=== PATIENT | female | born 2000 | race Two or more races ===

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

== ENCOUNTER 2019-06-23 11:42 | Emergency (ER) | payer MEDICAID ==
[~2019-06-23] VITALS: Ht 174 cm; Wt 64.9 kg
[~2019-06-23 11:42] MED LIST changes: +ALBUTEROL SULF8.5 GM INH; +MUPIROCIN22 GM TOPIC; +TYLENOL EXTRA500 MG ORAL; +ZYRTEC-D TABLE1 EACH ORAL
[2019-06-23 11:50] VITALS: BP 129/101
--- NOTE | 2019-06-23 11:50 | NUR ---
ED Nurse Note: Pt brought in by boyfriend from home d/t lower abdominal pain that radiates to right flank and right back. Per pt, she has been having this pain for 2 months and is being treated for UTI by primary doctor. Unknown antibiotic. Pt reports vaginal bleeding since this morning. Respirations even and unlabored on room air. Vitals stable as documented. Pt placed on monitored bed. A+Ox4
--- NOTE | 2019-06-23 12:04 | NUR ---
ED Nurse Note: urine and blood sent to lab
--- NOTE | 2019-06-23 12:06 | Emergency Room Report ---
History of Present Illness General Chief Complaint: Vaginal Source: Patient, Medical Record Present Illness HPI Disclaimer: Please note that this report is being documented using [employer] technology. This can lead to erroneous entry secondary to incorrect interpretation by the dictating instrument. HPI: 18-year-old female presents for evaluation of vaginal bleeding and pelvic pain. Symptoms present intermittently over the past 2 months. She notes increasing heavy flows and intermittent vaginal bleeding between periods. She was treated for urinary tract infection currently on Macrobid by her PMD. Reports some vaginal discharge. Was scheduled for an outpatient ultrasound. She states the pain in the right lower quadrant became worse last night does not radiate. She is status post appendectomy 2013. LMP 2 weeks ago. Reports chills and right-sided flank pain. Denies hematuria or dysuria. Denies fevers , chest pain, shortness of breath, cough, nausea, vomiting. PMH: Denies PSH: Laparoscopic appendectomy, elective Allergies: None Allergies: Coded Allergies: No Known Allergies (Unverified , 09/01/18) COVID-19 Screening Contact w/high risk pt: No Recent Travel to affected area: No Experienced COVID-19 symptoms?: No Patient History Last Menstrual Period: 06/04/2019 Now: No Nursing Documentation-PMH Past Medical History: No History, Except For Review of Systems All Other Systems: negative except mentioned in HPI Physical Exam Vital Signs Date Time Temp Pulse Resp B/P (MAP) Pulse Ox O2 Delivery O2 Flow Rate FiO2 06/23/19 11:43 98.4 89 18 129/101 (110) 100 Room Air General: Awake and alert, no acute distress HEENT: NC/AT. EOMI. Cardiovascular: RRR. S1 and S2 normal. No murmur appreciated Resp: Normal work of breathing. No cough, wheezing or crackles appreciated Abdomen: Abdomen is soft, nondistended. Tender palpation of the suprapubic region and right lower quadrant. No rebound. No masses. Some right-sided flank tenderness. : Bright red blood in vaginal vault coming from cervix. No other discharge. Moderate cervical motion tenderness. Skin: Intact. No abrasions, laceration or rash over the exposed skin MSK: Normal tone and bulk. Moving all extremities. No obvious deformity. Neuro: Awake and alert. Mentating appropriately. Medical Decision Making ER Course 18-year-old female presents for pelvic pain and vaginal bleeding. Differential includes was not limited to urinary tract infection, pyelonephritis, tubo- ovarian abscess, ovarian cyst, endometriosis, endometritis, abnormal uterine bleeding, ectopic to name a few. Will obtain labs including type and screen and transvaginal ultrasound. Laboratory Tests Test 06/23/19 11:45 06/23/19 12:00 White Blood Count 6.7 K/UL (4.8-10.8) Red Blood Count 5.09 M/UL (4.20-5.40) Hemoglobin 15.1 G/DL (12.0-16.0) Hematocrit 45.2 % (37.0-47.0) Mean Corpuscular Volume 89 FL (80-99) Mean Corpuscular Hemoglobin 29.7 PG (27.0-31.0) Mean Corpuscular Hemoglobin Concent 33.5 G/DL (32.0-36.0) Red Cell Distribution Width 12.8 % (11.6-14.8) Platelet Count 275 K/UL (150-450) Mean Platelet Volume 7.1 FL (6.5-10.1) Neutrophils (%) (Auto) 66.0 % (45.0-75.0) Lymphocytes (%) (Auto) 24.4 % (20.0-45.0) Monocytes (%) (Auto) 6.5 % (1.0-10.0) Eosinophils (%) (Auto) 1.9 % (0.0-3.0) Basophils (%) (Auto) 1.2 % (0.0-2.0) Sodium Level 143 MMOL/L (136-145) Potassium Level 3.8 MMOL/L (3.5-5.1) Chloride Level 107 MMOL/L (98-107) Carbon Dioxide Level 23 MMOL/L (21-32) Anion Gap 13 mmol/L (5-15) Blood Urea Nitrogen 13 mg/dL (7-18) Creatinine 0.8 MG/DL (0.55-1.30) Estimated Glomerular Filtration Rate > 60 mL/min (>60) Glucose Level 92 MG/DL (74-106) Calcium Level 9.2 MG/DL (8.5-10.1) Urine Color Pale yellow Urine Appearance Clear Urine pH 6.5 (4.5-8.0) Urine Specific [place] 1.010 (1.005-1.035) Urine Protein Negative (NEGATIVE) Urine Glucose (UA) Negative (NEGATIVE) Urine Ketones Negative (NEGATIVE) Urine Blood 5+ (NEGATIVE) H Urine Nitrite Negative (NEGATIVE) Urine Bilirubin Negative (NEGATIVE) Urine Urobilinogen Normal MG/DL (0.0-1.0) Urine Leukocyte Esterase 1+ (NEGATIVE) H Urine RBC 0-2 /HPF (0 - 2) Urine WBC 0-2 /HPF (0 - 2) Urine Squamous Epithelial Cells None /LPF (NONE/OCC) Urine Bacteria Occasional /HPF (NONE) Urine HCG, Qualitative Negative (NEGATIVE) CT/MRI/US Diagnostic Results CT/MRI/US Diagnostic Results : Impression Final Report EXAM: US Pelvis Complete, Transabdominal and transvaginal CLINICAL HISTORY: ABD PAIN TECHNIQUE: Real-time transabdominal and transvaginal pelvic ultrasound (complete) with image documentation. Transvaginal images were obtained to better evaluate the ovaries. COMPARISON: No relevant prior studies available. FINDINGS: Uterus/cervix: Uterus measures 7.4 x 5.3 x 4.1 cm. Endometrial stripe thickness of 9 mm. No myometrial mass. Right ovary: Not seen by transabdominal ultrasound due to overlying bowel gas, but identified with transvaginal ultrasound. Right ovary measures 3.1 x 2.7 x 1.6 cm. Normal Doppler blood flow. Left ovary: Not seen by transabdominal ultrasound due to overlying bowel gas, but identified with transvaginal ultrasound. Left ovary measures 3.3 x 2.9 x 2.0 cm. Normal Doppler blood flow. Free fluid: No free fluid seen. Bladder: Unremarkable as visualized. Wall is normal thickness for degree of distention. IMPRESSION: No acute findings. Radiologist: Jerry Le MD Electronically Signed: 06/23/19 12:56 Study ready at 12:50 and initial results transmitted at 12:56 Reevaluation Time: 13:48 Last Vital Signs Date Time Temp Pulse Resp B/P (MAP) Pulse Ox O2 Delivery O2 Flow Rate FiO2 06/23/19 11:43 98.4 89 18 129/101 (110) 100 Room Air Reevaluation Impression No evidence of tubo-ovarian abscess, ectopic or other significant pathology on ultrasound. Labs are within normal limits. No clear urinary tract infection. The patient may have a pelvic inflammatory disease given her recent vaginal discharge. Will treat empirically with intramuscular ceftriaxone and 2 weeks of doxycycline. Pain is improving. She can follow-up with her PROJECT GEOLOGIST. Discussed reasons to return to the emergency department. She understands and agrees with treatment plan. Disposition: HOME, SELF-CARE Condition: Stable Scripts Doxycycline Monohydrate* (DOXYCYCLINE MONOHYDRATE*) 100 Mg Capsule 100 MG ORAL Q12H for 14 Days, #28 CAP 0 Refills Prov: Eddy Winn MD 06/23/19 Eddy Winn MD Jun 23, 2019 12:06
[2019-06-23 12:21] LABS: APPEARANCE,URINE CLEAR; BILIRUBIN, URINE NEGATIVE (NEGATIVE); COLOR,URINE PALE YELLOW; GLUCOSE, URINE (UA) NEGATIVE (NEGATIVE); KETONES,URINE NEGATIVE (NEGATIVE); LEUKOCYTE ESTERASE ,URINE 1+ (NEGATIVE); NITRITE,URINE NEGATIVE (NEGATIVE); PH,URINE 6.5 (4.5-8.0); PROTEIN,URINE NEGATIVE (NEGATIVE); UROBILINOGEN,URINE NORMAL MG/DL (0.0-1.0)
[2019-06-23 12:25] LABS: ANION GAP 13 mmol/L (5-15); BLOOD UREA NITROGEN 13 mg/dL (7-18); CALCIUM 9.2 MG/DL (8.5-10.1); CARBON DIOXIDE 23 MMOL/L (21-32); CHLORIDE 107 MMOL/L (98-107); CREATININE 0.8 MG/DL (0.55-1.30); POTASSIUM 3.8 MMOL/L (3.5-5.1); SODIUM 143 MMOL/L (136-145)
[2019-06-23 12:42] LABS: BASOPHILS % (AUTO) 1.2 % (0.0-2.0); EOSINOPHILS % (AUTO) 1.9 % (0.0-3.0); HEMATOCRIT 45.2 % (37.0-47.0); HEMOGLOBIN 15.1 G/DL (12.0-16.0); LYMPHOCYTES % (AUTO) 24.4 % (20.0-45.0); MEAN CORPUSCULAR VOLUME 89 FL (80-99); MONOCYTES % (AUTO) 6.5 % (1.0-10.0); PLATELET COUNT 275 K/UL (150-450); RED BLOOD COUNT 5.09 M/UL (4.20-5.40); RED CELL DISTRIBUTION WIDTH 12.8 % (11.6-14.8); WHITE BLOOD COUNT 6.7 K/UL (4.8-10.8)
--- NOTE | 2019-06-23 12:57 | Diagnostic Imaging Report ---
EXAM: US Pelvis Complete, Transabdominal and transvaginal CLINICAL HISTORY: ABD PAIN TECHNIQUE: Real-time transabdominal and transvaginal pelvic ultrasound (complete) with image documentation. Transvaginal images were obtained to better evaluate the ovaries. COMPARISON: No relevant prior studies available. FINDINGS: Uterus/cervix: Uterus measures 7.4 x 5.3 x 4.1 cm. Endometrial stripe thickness of 9 mm. No myometrial mass. Right ovary: Not seen by transabdominal ultrasound due to overlying bowel gas, but identified with transvaginal ultrasound. Right ovary measures 3.1 x 2.7 x 1.6 cm. Normal Doppler blood flow. Left ovary: Not seen by transabdominal ultrasound due to overlying bowel gas, but identified with transvaginal ultrasound. Left ovary measures 3.3 x 2.9 x 2.0 cm. Normal Doppler blood flow. Free fluid: No free fluid seen. Bladder: Unremarkable as visualized. Wall is normal thickness for degree of distention. IMPRESSION: No acute findings.
[2019-06-23] MEDS ORDERED: DOXYCYCLINE MO100 MG ORAL (13:40)
[2019-06-23] MEDS ORDERED: Doxycycline Monohydrate 100mg ORAL ONE (13:45)
[2019-06-23] MEDS ORDERED: Lidocaine 1% MPF 10mg/ml 5ml INJ ONE (13:45)
[2019-06-23 14:00] VITALS: BP 121/98
--- NOTE | 2019-06-23 14:37 | Diagnostic Imaging Report ---
EXAM: US Pelvis, Transvaginal CLINICAL HISTORY: ABD PAIN TECHNIQUE: Real-time transvaginal pelvic ultrasound (complete) with image documentation. Transvaginal imaging was used for better evaluation of the endometrium and adnexa. COMPARISON: Transabdominal pelvic ultrasound obtained the same date. FINDINGS: Uterus/cervix: Uterus measures 7.4 x 5.3 x 4.1 cm. Endometrial stripe thickness of 9 mm. No myometrial mass. Right ovary: Right ovary measures 3.0 x 2.7 x 1.6 cm. Normal Doppler blood flow. Left ovary: Left ovary measures 3.3 x 3.0 x 2.0 cm. Normal Doppler blood flow. Free fluid: No free fluid. Bladder: Visualized portions appear unremarkable.. IMPRESSION: No acute findings.
== END 2019-06-23 14:00 | disposition home or self-care (01) ==
LOC: EMR 12:00
DX: R10.2 Pelvic and perineal pain (principal); N93.9 Abnormal uterine and vaginal bleeding, unspecified; Z90.89 Acquired absence of other organs
CPT/HCPCS: 36415; 76830; 76856; 80048; 81003; 81025; 85025; 86850; 86900; 86901; 96372; J0696; Z7502; 99284

== ENCOUNTER 2019-06-27 22:21 | Emergency (ER) | payer MEDICAID ==
[~2019-06-27] VITALS: Ht 172.7 cm; Wt 62.6 kg
[~2019-06-27 22:21] MED LIST changes: +DOXYCYCLINE MO100 MG ORAL
--- NOTE | 2019-06-27 22:39 | Emergency Room Report ---
History of Present Illness General Chief Complaint: Abdominal Pain Source: Patient Present Illness HPI Is a 18-year-old female with no past medical history. She woke up with chief complaint of back pain. Also with abdominal pain. Onset about 30 minutes ago. She felt short of breath and also complaining of numbness to her fingers. Pain is 10 out of 10. Never had this problem before. She was seen here 3 days ago for vaginal bleeding. Labs was unremarkable. Ultrasound was negative. She was treated with doxycycline for possible PID. Patient said bleeding stopped. Denies any fever chills but denies any nausea or vomiting. Nothing made it better. Any movement or palpation made it worse. Allergies: Coded Allergies: No Known Allergies (Unverified , 09/01/18) COVID-19 Screening Contact w/high risk pt: No Recent Travel to affected area: No Experienced COVID-19 symptoms?: No Patient History Past Medical History: see triage record, old chart reviewed Past Surgical History: none Pertinent Family History: none Social History: Denies: smoking Last Menstrual Period: 05/25/19 Now: No Immunizations: other Reviewed Nursing Documentation: PMH: Agreed; PSxH: Agreed Nursing Documentation-PMH Past Medical History: No History, Except For Review of Systems Eye: Denies: eye pain, blurred vision ENT: Denies: ear pain, nose congestion, throat swelling Respiratory: Denies: cough, shortness of breath Cardiovascular: Denies: chest pain, palpitations Gastrointestinal: Reports: abdominal pain; Denies: diarrhea, nausea, vomiting Musculoskeletal: Reports: back pain; Denies: joint pain Skin: Denies: rash Neurological: Denies: headache, numbness Endocrine: Denies: increased thirst, increased urine Hematologic/Lymphatic: Denies: easy bruising All Other Systems: negative except mentioned in HPI Physical Exam Vital Signs Date Time Temp Pulse Resp B/P (MAP) Pulse Ox O2 Delivery O2 Flow Rate FiO2 06/27/19 22:24 98.6 76 22 125/81 (96) 97 Room Air Vitals normal Sp02 EP Interpretation: reviewed, normal General Appearance: well appearing, no apparent distress, alert Head: normocephalic, atraumatic Eyes: bilateral eye PERRL, bilateral eye EOMI ENT: hearing grossly normal, normal pharynx Neck: full range of motion, supple, no meningismus Respiratory: chest non-tender, lungs clear, normal breath sounds Cardiovascular #1: regular rate, rhythm, no murmur Gastrointestinal: normal bowel sounds, no mass, no organomegaly, no bruit, non- distended, tenderness - diffuse Musculoskeletal: back normal - Diffuse pain., normal range of motion, gait/ station normal Psychiatric: anxious Medical Decision Making Diagnostic Impression: Primary Impression: Abdominal pain Qualified Codes: R10.84 - Generalized abdominal pain ER Course With abdominal pain and pelvic pain. Seem to be a chronic problem for her but worse today. I suspect that she may have endometritis or menstruation pain. CT scan is negative for acute abdomen. Negative for obstruction. She already had an appendectomy in the past. Will discharge home. 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 She may benefit from being on control to help regulate her cycle and pain. CT/MRI/US Diagnostic Results CT/MRI/US Diagnostic Results : Imaging Test Ordered: CT abdomen pelvis Impression Read by radiologist. Previous appendectomy. Otherwise negative. Last Vital Signs Date Time Temp Pulse Resp B/P (MAP) Pulse Ox O2 Delivery O2 Flow Rate FiO2 06/27/19 22:24 98.6 76 22 125/81 (96) 97 Room Air Disposition: HOME, SELF-CARE Condition: Stable Scripts Ibuprofen* (MOTRIN*) 600 Mg Tablet 600 MG ORAL Q6H PRN for For Pain, #30 TAB 0 Refills Prov: Cristi Fang MD 06/27/19 Hydrocodone/Acetaminophen 5-325* (HYDROCODONE/ACETAMINOPHEN 5-325*) 1 Each Tablet 1 TAB ORAL Q6H PRN for For Pain, #15 TAB 0 Refills Prov: Cristi Fang MD 06/27/19 Patient Instructions: Abdominal Pain, Adult Additional Instructions: Follow-up with your doctor in 3 to 5 days if not better. Return if symptoms worsen. Keep your appointment with your PATTERN CHAIN MAKER SUPERVISOR. You may benefit from being on control pill to regulate your cycles to see if this help with the bleeding and pain. Cristi Fang MD Jun 27, 2019 22:39
[2019-06-27 22:40] VITALS: BP 125/81
--- NOTE | 2019-06-27 22:40 | NUR ---
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 Pt also reports nausea and difficulty breathing. Pt appears anxious at this time and is crying due to pain. Pt is aaox4, breathing is normal and unlabored. Pt placed on quality assurance monitor. Will continue to monitor.
[2019-06-27] MEDS ORDERED: Ketorolac 30mg Inj IV ONE (22:45)
[2019-06-27] MEDS ORDERED: LORazepam Inj 2mg/ml 1ml IV ONE (22:45)
--- NOTE | 2019-06-27 22:51 | NUR ---
ED Nurse Note: blood drawn and sent to lab
--- NOTE | 2019-06-27 22:52 | NUR ---
ED Nurse Note: pt went to ct
[2019-06-27 23:18] LABS: BASOPHILS % (AUTO) 1.8 % (0.0-2.0); EOSINOPHILS % (AUTO) 2.8 % (0.0-3.0); HEMATOCRIT 41.4 % (37.0-47.0); HEMOGLOBIN 14.1 G/DL (12.0-16.0); LYMPHOCYTES % (AUTO) 37.6 % (20.0-45.0); MEAN CORPUSCULAR VOLUME 88 FL (80-99); MONOCYTES % (AUTO) 7.4 % (1.0-10.0); NEUTROPHILS % (AUTO) 50.6 % (45.0-75.0); PLATELET COUNT 309 K/UL (150-450); RED CELL DISTRIBUTION WIDTH 12.7 % (11.6-14.8); WHITE BLOOD COUNT 8.4 K/UL (4.8-10.8)
--- NOTE | 2019-06-27 23:18 | Diagnostic Imaging Report ---
INDICATION: Abdominal pain TECHNIQUE: Continuous helical transaxial imaging of the abdomen and pelvis was obtained from the lung bases to the pubic symphysis. No intravenous contrast was administered. Coronal 2-D reformats were also obtained. Automatic Exposure Control was utilized. Total Dose length Product (DLP): 221.[address] Dose Index Volume (CTDIvol): 4.2 mGy Comparison: none FINDINGS: Lungs: There is considerable motion artifact. The lung bases are clear as visualized.. Liver: Unremarkable Gallbladder/biliary system: No gallstones are identified. There is no evidence of intrahepatic or extrahepatic biliary ductal dilatation. Spleen: Unremarkable Pancreas: The pancreatic head is prominent. This is not evaluated well on this exam. This could very well be artifactual due to the adjacent stomach and duodenum which are completely collapsed and unopacified. Kidneys/Bladder: No definite stone or hydronephrosis are identified. The urinary bladder is unremarkable.. Adrenal glands: Unremarkable Bowel: No obvious abnormality seen. Patient's had prior appendectomy with sutures noted. Aorta/IVC: Unremarkable Peritoneum: There is no free fluid. Bones: Unremarkable IMPRESSION: No acute findings. Status post appendectomy. Limited evaluation Note: Evaluation of solid organs is limited on non contrast imaging. The CT scanner at [facility] is accredited by the [employer] and the scans are performed using dose optimization techniques as appropriate to a performed exam including Automatic Exposure control.
[2019-06-27 23:19] LABS: ANION GAP 7 mmol/L (5-15); BLOOD UREA NITROGEN 10 mg/dL (7-18); CALCIUM 9.3 MG/DL (8.5-10.1); CARBON DIOXIDE 28 MMOL/L (21-32); CHLORIDE 105 MMOL/L (98-107); CREATININE 0.7 MG/DL (0.55-1.30); SODIUM 140 MMOL/L (136-145)
[2019-06-27] MEDS ORDERED: Morphine Sulfate 4mg/ml Inj (IV USE ONLY) IVP ONE (23:30)
[2019-06-27] MEDS ORDERED: IBUPROFEN600 M1 ORAL (23:38)
[2019-06-27] MEDS ORDERED: HYDROCODON-ACE1 EA15 ORAL (23:38)
[2019-06-28 00:50] VITALS: BP 106/64
== END 2019-06-28 00:50 | disposition home or self-care (01) ==
LOC: EMR 22:53
DX: R10.84 Generalized abdominal pain (principal); M54.9 Dorsalgia, unspecified; Z90.89 Acquired absence of other organs
CPT/HCPCS: 36415; 74176; 80048; 85025; 96361; 96374; 96375; J1885; J2270; J2405; J7030; Z7502; 99284

== ENCOUNTER 2019-07-22 18:34 | Emergency (ER) | payer MEDICAID ==
[~2019-07-22] VITALS: Ht 172.7 cm; Wt 63.0 kg
[~2019-07-22 18:34] MED LIST changes: +HYDROCODON-ACE1 EA15 ORAL; +IBUPROFEN600 M1 ORAL
--- NOTE | 2019-07-22 18:50 | NUR ---
ED Nurse Note: Pt walked in from home d/t Dr. Crockett referral d/t abdominal pain and generalized weakness that started on the . Pt denies n/v/d. Respirations even and unlabored on room air. Vitals stable as documented.
--- NOTE | 2019-07-22 19:03 | NUR ---
ED Nurse Note: ED MD @ bedside
[2019-07-22 19:05] VITALS: BP 124/85
--- NOTE | 2019-07-22 19:09 | NUR ---
HAND-OFF: Report given to ALFREDO Mccormick. Pt in stable condition; plan of care endorsed.
--- NOTE | 2019-07-22 19:10 | NUR ---
ED Nurse Note: Report received from ALFREDO Rao. Pt in stable condition, VSS no ss of distress noted. IV line initiated, blood drawn and sent to lab; urine sent to lab. IV fluids running. IV line patent and intact, no ss of distress noted. Pt resting comfortably in bed, will continue to monitor.
--- NOTE | 2019-07-22 19:12 | Emergency Room Report ---
History of Present Illness General Chief Complaint: Abdominal Pain Source: Patient Present Illness HPI Patient is a 18-year-old female who presents after increased abdominal discomfort. Patient had recently been having increased dark stool. Had recent antibiotic use due to pelvic inflammatory disease. Patient had recent menses which was slightly irregular. Denies any fever. Denies any localized pain currently. Allergies: Coded Allergies: No Known Allergies (Unverified , 09/01/18) COVID-19 Screening Contact w/high risk pt: No Recent Travel to affected area: No Experienced COVID-19 symptoms?: No Patient History Past Medical History: see triage record Last Menstrual Period: 07/20/19 Reviewed Nursing Documentation: PMH: Agreed; PSxH: Agreed Nursing Documentation-PMH Hx Cardiac Problems: Yes - Appendectomy, last August 2018 Hx Seizures: Yes Review of Systems All Other Systems: negative except mentioned in HPI Physical Exam Vital Signs Date Time Temp Pulse Resp B/P (MAP) Pulse Ox O2 Delivery O2 Flow Rate FiO2 07/22/19 18:44 97.5 88 20 120/80 (93) 97 Room Air General Appearance: well appearing, no apparent distress, alert, GCS 15 Head: normocephalic, atraumatic ENT: hearing grossly normal, normal voice Neck: full range of motion, supple Respiratory: lungs clear, normal breath sounds, no respiratory distress, speaking full sentences Cardiovascular #1: normal inspection, regular rate, rhythm Gastrointestinal: normal inspection, soft Musculoskeletal: swelling, no calf tenderness Neurologic: alert, motor strength/tone normal, 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 Differential diagnosis includes not limited to gastroenteritis, colitis, pelvic inflammatory disease, among others. . Because of complexity of patient's case laboratory tests were ordered. Patient had recent treatment with antibiotics. Does not appear to be any distress. Patient has nontender abdomen. She appears to be stable for outpatient management. Laboratory testing was unremarkable other than elevated liver function test. Patient was advised to follow-up with primary care physician for further work-up. This medical record is generated with [employer] plate painter apprentice software. There may be some plate painter apprentice discrepancies related to use of this software Labs Test 07/22/19 19:23 White Blood Count 5.2 K/UL (4.8-10.8) Red Blood Count 4.41 M/UL (4.20-5.40) Hemoglobin 13.0 G/DL (12.0-16.0) Hematocrit 41.4 % (37.0-47.0) Mean Corpuscular Volume 94 FL (80-99) Mean Corpuscular Hemoglobin 29.5 PG (27.0-31.0) Mean Corpuscular Hemoglobin Concent 31.3 G/DL (32.0-36.0) Red Cell Distribution Width 14.1 % (11.6-14.8) Platelet Count 208 K/UL (150-450) Mean Platelet Volume 8.5 FL (6.5-10.1) Neutrophils (%) (Auto) 52.0 % (45.0-75.0) Lymphocytes (%) (Auto) 32.3 % (20.0-45.0) Monocytes (%) (Auto) 9.9 % (1.0-10.0) Eosinophils (%) (Auto) 4.3 % (0.0-3.0) Basophils (%) (Auto) 1.4 % (0.0-2.0) Urine Color Yellow Urine Appearance Clear Urine pH 7 (4.5-8.0) Urine Specific [place] 1.005 (1.005-1.035) Urine Protein Negative (NEGATIVE) Urine Glucose (UA) Negative (NEGATIVE) Urine Ketones Negative (NEGATIVE) Urine Blood 1+ (NEGATIVE) Urine Nitrite Negative (NEGATIVE) Urine Bilirubin Negative (NEGATIVE) Urine Urobilinogen Normal MG/DL (0.0-1.0) Urine Leukocyte Esterase Negative (NEGATIVE) Urine RBC 5-10 /HPF (0 - 2) Urine WBC 0-2 /HPF (0 - 2) Urine Squamous Epithelial Cells Few /LPF (NONE/OCC) Urine Bacteria Few /HPF (NONE) Urine HCG, Qualitative Negative (NEGATIVE) Sodium Level 144 MMOL/L (136-145) Potassium Level 3.5 MMOL/L (3.5-5.1) Chloride Level 106 MMOL/L (98-107) Carbon Dioxide Level 30 MMOL/L (21-32) Anion Gap 8 mmol/L (5-15) Blood Urea Nitrogen 12 mg/dL (7-18) Creatinine 1.0 MG/DL (0.55-1.30) Estimat Glomerular Filtration Rate > 60 mL/min (>60) Glucose Level 98 MG/DL (74-106) Calcium Level 9.3 MG/DL (8.5-10.1) Total Bilirubin 0.2 MG/DL (0.2-1.0) Aspartate Amino Transf (AST/SGOT) 101 U/L (15-37) Alanine Aminotransferase (ALT/SGPT) 100 U/L (12-78) Alkaline Phosphatase 64 U/L (46-116) Troponin I 0.000 ng/mL (0.000-0.056) Total Protein 7.1 G/DL (6.4-8.2) Albumin 3.7 G/DL (3.4-5.0) Globulin 3.4 g/dL Albumin/Globulin Ratio 1.1 (1.0-2.7) Lipase 127 U/L (73-393) Last Vital Signs Date Time Temp Pulse Resp B/P (MAP) Pulse Ox O2 Delivery O2 Flow Rate FiO2 07/22/19 19:05 97.5 85 20 124/85 97 Room Air Status: improved Disposition: HOME, SELF-CARE Condition: Stable Earle Pal MD Jul 22, 2019 19:12
[2019-07-22 19:41] LABS: BASOPHILS % (AUTO) 1.4 % (0.0-2.0); EOSINOPHILS % (AUTO) 4.3 % (0.0-3.0); HEMATOCRIT 41.4 % (37.0-47.0); LYMPHOCYTES % (AUTO) 32.3 % (20.0-45.0); MEAN CORPUSCULAR VOLUME 94 FL (80-99); MONOCYTES % (AUTO) 9.9 % (1.0-10.0); PLATELET COUNT 208 K/UL (150-450); RED BLOOD COUNT 4.41 M/UL (4.20-5.40); RED CELL DISTRIBUTION WIDTH 14.1 % (11.6-14.8); WHITE BLOOD COUNT 5.2 K/UL (4.8-10.8)
[2019-07-22 19:46] LABS: APPEARANCE,URINE CLEAR; BILIRUBIN, URINE NEGATIVE (NEGATIVE); COLOR,URINE YELLOW; GLUCOSE, URINE (UA) NEGATIVE (NEGATIVE); KETONES,URINE NEGATIVE (NEGATIVE); LEUKOCYTE ESTERASE ,URINE NEGATIVE (NEGATIVE); NITRITE,URINE NEGATIVE (NEGATIVE); PH,URINE 7 (4.5-8.0); PROTEIN,URINE NEGATIVE (NEGATIVE); UROBILINOGEN,URINE NORMAL MG/DL (0.0-1.0)
--- NOTE | 2019-07-22 20:19 | NUR ---
ED Nurse Note: Iv fluids complete. Pt tolerated well. no ss of distress noted. will continue to monitor
[2019-07-22 20:25] LABS: ANION GAP 8 mmol/L (5-15); BLOOD UREA NITROGEN 12 mg/dL (7-18); CALCIUM 9.3 MG/DL (8.5-10.1); CARBON DIOXIDE 30 MMOL/L (21-32); CHLORIDE 106 MMOL/L (98-107); POTASSIUM 3.5 MMOL/L (3.5-5.1); SODIUM 144 MMOL/L (136-145)
[2019-07-22 20:29] LABS: ALANINE AMINOTRANSFERASE 100 U/L (12-78); ALBUMIN 3.7 G/DL (3.4-5.0); ALBUMIN/GLOBULIN RATIO 1.1 (1.0-2.7); ALKALINE PHOSPHATASE 64 U/L (46-116); ASPARTATE AMINO TRANSFERASE 101 U/L (15-37); BILIRUBIN,TOTAL 0.2 MG/DL (0.2-1.0)
[2019-07-22 20:52] VITALS: BP 120/75
--- NOTE | 2019-07-22 20:52 | NUR ---
ER DISCHARGE NOTE: Patient is cleared to be discharged home per ERMD, pt is aox4, 99% on room air, with stable vital signs. pt was given dc and prescription instructions, pt was able to verbalize understanding, pt id band and iv site removed without complications. pt is able to ambulate with steady gait. pt took all belongings.
== END 2019-07-22 20:52 | disposition home or self-care (01) ==
LOC: EMR 19:24
DX: R10.9 Unspecified abdominal pain (principal); R94.5 Abnormal results of liver function studies; Z90.89 Acquired absence of other organs; G40.909 Epilepsy, unspecified, not intractable, without status epilepticus
CPT/HCPCS: 36415; 80053; 81003; 81025; 83690; 84484; 85025; 96360; J7030; Z7502; 99284

== ENCOUNTER 2020-02-24 23:04 | Emergency (ER) | payer MEDICAID ==
[~2020-02-24] VITALS: Ht 172.7 cm; Wt 64.9 kg
--- NOTE | 2020-02-24 23:15 | NUR ---
ED Nurse Note: Patient walked into the ED from home with c/o swollen lymph nodes with cough and sorethroat onset 1 week. Patient states having foul smelling vaginal discharge and having a sex partner with chlamydia. Patient denies fever/chills, nausea/vomiting. Urine specimen sent. PAtient is AAOX4 and ambulatory
--- NOTE | 2020-02-24 23:15 | NUR ---
Note [email or web address] in EDM - 02/24/20 at 2345 by [email or web address] ED Nurse Note: Patient walked into the ED from home with c/o swollen lymph nodes with cough and sorethroat onset 1 week. Patient states having foul smelling vaginal discharge. having a sex partner with chlamydia. Patient denies fever/chills, nausea/vomiting. Pt c/o swollen lymph nodes for one week with cough and sore throat, also wanting clamidia testing
[2020-02-24] MEDS ORDERED: DOXYCYCLINE MO100 MG ORAL (23:24)
[2020-02-24 23:30] LABS: BILIRUBIN, URINE NEGATIVE (NEGATIVE); GLUCOSE, URINE (UA) NEGATIVE (NEGATIVE); KETONES,URINE 2+ (NEGATIVE); LEUKOCYTE ESTERASE ,URINE 3+ (NEGATIVE); NITRITE,URINE NEGATIVE (NEGATIVE); PH,URINE 6 (4.5-8.0); PROTEIN,URINE 1+ (NEGATIVE); UROBILINOGEN,URINE 1 MG/DL (0.0-1.0)
[2020-02-24] MEDS ORDERED: Lidocaine 1% MPF 10mg/ml 5ml INJ ONE (23:30)
--- NOTE | 2020-02-24 23:46 | Emergency Room Report ---
History of Present Illness General Chief Complaint: Sore Throat Present Illness HPI 19-year-old female here with swollen lymph nodes of the neck for several days and also concern for chlamydia infection. Patient says that someone with him she had sex approximately 3 weeks ago tested positive for chlamydia today. Patient says that over the past several days she has noted foul-smelling urine. She says that another male partner of her recently had upper respiratory illness type symptoms such as a sore throat, swollen lymph nodes, dry cough. Patient says she has been having the symptoms now for 3 days. Denies headache, vision changes, neck stiffness, fevers, chills, chest pain, palpitations, back pain, abdominal pain, nausea, vomiting, diarrhea, dysuria, vaginal discharge, vaginal bleeding. 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 Hx Cardiac Problems: Yes - Appendectomy, last August 2018 Hx Seizures: Yes Review of Systems All Other Systems: negative except mentioned in HPI Physical Exam Vital Signs Date Time Temp Pulse Resp B/P (MAP) Pulse Ox O2 Delivery O2 Flow Rate FiO2 02/24/20 23:12 97.3 76 18 117/75 (89) 95 Room Air Sp02 EP Interpretation: reviewed, normal General Appearance: no apparent distress, alert, non-toxic Head: normocephalic, atraumatic Eyes: bilateral eye normal inspection, bilateral eye PERRL ENT: hearing grossly normal, normal pharynx, no angioedema, normal voice Neck: full range of motion, supple/symm/no masses, other - Small some mandibular lymphadenopathy bilaterally. No neck stiffness Respiratory: chest non-tender, lungs clear, normal breath sounds, speaking full sentences Cardiovascular #1: regular rate, rhythm, no edema Cardiovascular #2: 2+ carotid (R), 2+ carotid (L), 2+ radial (R), 2+ radial (L), 2+ dorsalis pedis (R), 2+ dorsalis pedis (L) Gastrointestinal: normal bowel sounds, non tender, soft, non-distended, no guarding, no rebound Rectal: deferred Genitourinary: normal inspection, no CVA tenderness Musculoskeletal: back normal, normal range of motion, calf tenderness, gait/station normal, non-tender Neurologic: alert, motor strength/tone normal, sensory intact, responsive, speech normal Psychiatric: judgement/insight normal, memory normal, mood/affect normal, no suicidal/homicidal ideation Reflexes: 3+ bicep (R), 3+ bicep (L), 3+ tricep (R), 3+ tricep (L), 3+ knee (R), 3+ knee (L) Medical Decision Making Diagnostic Impression: Primary Impression: STI (sexually transmitted infection) Additional Impressions: Lymphadenopathy PID (pelvic inflammatory disease) ER Course 19-year-old female here with small lymph nodes, sore throat, concern for chlamydia infection after a partner tested positive for chlamydia. Patient was hemodynamically stable and neurovascular intact in the emergency department. She had mild lymphadenopathy for submandibular region bilaterally. No neck stiffness. She had normal vital signs. No concern for meningitis or any other serious infection at this time. There was however concerned that patient may have PID given the fact that she was exposed to chlamydia approximately 3 weeks ago and is now having generalized symptoms. She was given ceftriaxone in the emergency department and a prescription for doxycycline to treat for possible PID. Was also back to the emergency department with worsening symptoms. Discharged in stable condition. Laboratory Tests Test 02/24/20 23:23 Urine Color Yellow Urine Appearance Slightly cloudy Urine pH 6 (4.5-8.0) Urine Specific [place] 1.020 (1.005-1.035) Urine Protein 1+ (NEGATIVE) H Urine Glucose (UA) Negative (NEGATIVE) Urine Ketones 2+ (NEGATIVE) H Urine Blood 2+ (NEGATIVE) H Urine Nitrite Negative (NEGATIVE) Urine Bilirubin Negative (NEGATIVE) Urine Urobilinogen 1 MG/DL (0.0-1.0) H Urine Leukocyte Esterase 3+ (NEGATIVE) H Urine RBC 5-10 /HPF (0 - 2) H Urine WBC 20-30 /HPF (0 - 2) H Urine Squamous Epithelial Cells Many /LPF (NONE/OCC) H Urine Bacteria Moderate /HPF (NONE) H Urine HCG, Qualitative Negative (NEGATIVE) Last Vital Signs Date Time Temp Pulse Resp B/P (MAP) Pulse Ox O2 Delivery O2 Flow Rate FiO2 02/24/20 23:12 97.3 76 18 117/75 (89) 95 Room Air Disposition: HOME, SELF-CARE Condition: Stable Scripts Doxycycline Monohydrate* (DOXYCYCLINE MONOHYDRATE*) 100 Mg Capsule 100 MG ORAL Q12H for 14 Days, #28 CAP 0 Refills Prov: Marty Mcgee M.D. 02/24/20 Referrals: [facility] Patient Instructions: Cervicitis, Laryngitis, Chlamydia, Female Additional Instructions: Please follow-up with your primary care doctor in the next 1 to 3 days to discuss this emergency department visit and for reevaluation. If you have any new or worsening symptoms please return to the emergency department for reevaluation. Marty Mcgee M.D. Feb 24, 2020 23:46
--- NOTE | 2020-02-24 23:46 | NUR ---
ER DISCHARGE NOTE: Patient is cleared to be discharged per ERMD, pt is aox4, on room air, with stable vital signs. pt was given dc and prescription instructions, pt was able to verbalize understanding, pt id band removed. pt is able to ambulate with steady gait. pt took all belongings.
[2020-02-24 23:47] VITALS: BP 117/75
[2020-02-24 23:57] LABS: APPEARANCE,URINE SLIGHTLY CLOUDY; COLOR,URINE YELLOW
== END 2020-02-24 23:46 | disposition home or self-care (01) ==
LOC: EMR 23:20
DX: A64 Unspecified sexually transmitted disease (principal); N73.9 Female pelvic inflammatory disease, unspecified; R59.1 Generalized enlarged lymph nodes; G40.909 Epilepsy, unspecified, not intractable, without status epilepticus
CPT/HCPCS: 81003; 81025; 87086; 96372; J0696; Z7502; 99283

== ENCOUNTER 2020-03-06 23:25 | Emergency (ER) | payer MEDICAID ==
[~2020-03-06] VITALS: Ht 172.7 cm; Wt 64.9 kg
[2020-03-06 23:34] VITALS: BP 117/75
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
== END 2020-03-06 23:50 | disposition left against medical advice (07) ==
LOC: EMR 23:43
DX: T23.152A Burn of first degree of left palm, initial encounter (principal); T23.132A Burn of first degree of multiple left fingers (nail), not including thumb, initial encounter; G40.909 Epilepsy, unspecified, not intractable, without status epilepticus; X15.3XXA Contact with hot saucepan or skillet, initial encounter; Y93.9 Activity, unspecified; Y92.9 Unspecified place or not applicable; Z53.21 Procedure and treatment not carried out due to patient leaving prior to being seen by health care provider

== ENCOUNTER 2020-04-12 18:20 | Emergency (ER) | payer MEDICAID ==
[~2020-04-12] VITALS: Ht 172.7 cm; Wt 64.9 kg
[2020-04-12 18:30] VITALS: BP 118/62
--- NOTE | 2020-04-12 18:36 | NUR ---
ED Nurse Note: Patient from home and walked in due to dysuria, urinary frequency and pink tinged urine x 4 days. States pain on her vaginal area. Pt is AAO x4, ambulatory.
--- NOTE | 2020-04-12 18:40 | NUR ---
ED Nurse Note: Collected urine then sent.
[2020-04-12 18:56] LABS: APPEARANCE,URINE CLOUDY; BILIRUBIN, URINE NEGATIVE (NEGATIVE); COLOR,URINE PALE YELLOW; GLUCOSE, URINE (UA) NEGATIVE (NEGATIVE); KETONES,URINE NEGATIVE (NEGATIVE); LEUKOCYTE ESTERASE ,URINE 3+ (NEGATIVE); NITRITE,URINE NEGATIVE (NEGATIVE); PH,URINE 6 (4.5-8.0); PROTEIN,URINE 1+ (NEGATIVE); UROBILINOGEN,URINE NORMAL MG/DL (0.0-1.0)
--- NOTE | 2020-04-12 19:00 | NUR ---
ED Nurse Note: Patient taken to CT in stable condition.
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
--- NOTE | 2020-04-12 19:09 | NUR ---
ED Nurse Note: patient came back from CT.
[2020-04-12] MEDS ORDERED: Tylenol #3 tab (300mg/30mg) ORAL ONE (19:15)
[2020-04-12] MEDS ORDERED: Phenazopyridine 200mg tab ORAL ONE (19:15)
--- NOTE | 2020-04-12 19:21 | NUR ---
HAND-OFF: Report given to Mi FUENTES.
--- NOTE | 2020-04-12 19:40 | Diagnostic Imaging Report ---
EXAM: CT Maxillofacial Without Intravenous Contrast CLINICAL HISTORY: PAIN TECHNIQUE: Axial computed tomography images of the face without intravenous contrast. CTDI is 15.3 mGy and DLP is 370.5 mGy-cm. One or more of the following dose reduction techniques were used: automated exposure control, adjustment of the mA and/or kV according to patient size, use of iterative reconstruction technique. COMPARISON: None. FINDINGS: Bones/joints: No acute fracture. Bilateral globes and intraconal region of the orbits are normal. Soft tissues: Unremarkable. Orbits: Unremarkable. Sinuses: Mucous retention cyst versus mucosal thickening involving the left maxillary sinus. No air-fluid level. Remainder of the paranasal sinuses are clear. IMPRESSION: 1. Mucosal thickening versus mucus retention cyst within the left maxillary sinus. 2. No facial bone fracture visualized.
[2020-04-12] MEDS ORDERED: PHENAZOPYRIDIN200 MG ORAL (19:49)
[2020-04-12] MEDS ORDERED: IBUPROFEN600 M1 ORAL (19:49)
[2020-04-12] MEDS ORDERED: BACTRIM DS TAB1 EAC1 ORAL (19:49)
[2020-04-12 19:50] VITALS: BP 121/69
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
[2020-04-12 20:05] VITALS: BP 121/69
== END 2020-04-12 20:05 | disposition home or self-care (01) ==
LOC: EMR 18:59
DX: N39.0 Urinary tract infection, site not specified (principal); S00.83XA Contusion of other part of head, initial encounter; Y04.2XXA Assault by strike against or bumped into by another person, initial encounter; Y93.9 Activity, unspecified; Y92.59 Other trade areas as the place of occurrence of the external cause; G40.909 Epilepsy, unspecified, not intractable, without status epilepticus
CPT/HCPCS: 70486; 81003; 87086; Z7502; 99284

== ENCOUNTER 2020-04-22 07:52 | Emergency (ER) | payer MEDICAID ==
[~2020-04-22] VITALS: Ht 172.7 cm; Wt 64.9 kg
[~2020-04-22 07:52] MED LIST changes: +BACTRIM DS TAB1 EAC1 ORAL; +PHENAZOPYRIDIN200 MG ORAL
--- NOTE | 2020-04-22 08:07 | NUR ---
ED Nurse Note: Pt walked into ED for sore throat x2 days, sores on tongue and lips. Pain on sores is 7/10. Pt has cough x1 days. She denies CARTER, NVD, bodyaches, chills. HR 122. Pt refusing to give urine sample. Pt states she had unprotected sex yesterday.
[2020-04-22 08:09] VITALS: BP 112/80
[2020-04-22] MEDS ORDERED: ACYCLOVIR400 MG ORAL (08:14)
--- NOTE | 2020-04-22 08:19 | Emergency Room Report ---
History of Present Illness General Chief Complaint: Sore Throat Source: Patient Present Illness HPI 19-year-old female here with oral ulcers. Patient was sexually active with a man who has had multiple recent partners. Says that she awoke yesterday and began to notice painful ulcers on the mucous membrane surface of her lower lip. No fevers, chills, chest pain, palpitation, shortness of breath, back pain, abdominal pain, nausea, vomiting, diarrhea, dysuria, vaginal pain, vaginal discharge. Allergies: Coded Allergies: No Known Allergies (Unverified , 09/01/18) COVID-19 Screening Contact w/high risk pt: No Recent Travel to affected area: No Experienced COVID-19 symptoms?: No COVID-19 Testing performed AEROPHYSICS ENGINEER: No Patient History Last Menstrual Period: 04/06 Now: No Nursing Documentation-[facility] Past Medical History: No History, Except For Hx Cardiac Problems: Yes - Appendectomy, last August 2018 Hx Seizures: Yes Review of Systems All Other Systems: negative except mentioned in HPI Physical Exam Vital Signs Date Time Temp Pulse Resp B/P (MAP) Pulse Ox O2 Delivery O2 Flow Rate FiO2 04/22/20 07:56 97.9 122 16 106/77 (87) 98 Room Air Sp02 EP Interpretation: reviewed, normal General Appearance: no apparent distress, alert, non-toxic Head: normocephalic, atraumatic Eyes: bilateral eye normal inspection, bilateral eye PERRL ENT: hearing grossly normal, normal pharynx, no angioedema, normal voice, other - Multiple small ulcers with erythematous base on the mucous membrane surface of the lower lip. No corneal involvement Neck: full range of motion, supple/symm/no masses Respiratory: chest non-tender, lungs clear, normal breath sounds, speaking full sentences Cardiovascular #1: regular rate, rhythm, no edema Cardiovascular #2: 2+ carotid (R), 2+ carotid (L), 2+ radial (R), 2+ radial (L), 2+ dorsalis pedis (R), 2+ dorsalis pedis (L) Gastrointestinal: normal bowel sounds, non tender, soft, non-distended, no guarding, no rebound Rectal: deferred Genitourinary: normal inspection, no CVA tenderness Musculoskeletal: back normal, normal range of motion, calf tenderness, gait/station normal, non-tender Neurologic: alert, motor strength/tone normal, oriented x3, sensory intact, responsive, speech normal Psychiatric: judgement/insight normal, memory normal, mood/affect normal, no s uicidal/homicidal ideation Reflexes: 3+ bicep (R), 3+ bicep (L), 3+ tricep (R), 3+ tricep (L), 3+ knee (R) , 3+ knee (L) Lymphatic: no adenopathy Medical Decision Making Diagnostic Impression: Primary Impression: Oral ulcer ER Course 19-year-old female here with oral ulcers. Patient is sexually active with multiple partners. Claims she takes control pills. She had multiple ul cers on her lower lip concerning for herpes simplex. She has no allergies. Was given prescription for 10 days of acyclovir. Told to follow-up with primary care. Discharged in stable condition. Last Vital Signs Date Time Temp Pulse Resp B/P (MAP) Pulse Ox O2 Delivery O2 Flow Rate FiO2 04/22/20 08:09 97.9 114 18 112/80 98 Room Air Disposition: HOME, SELF-CARE Condition: Stable Scripts Acyclovir* (ACYCLOVIR*) 400 Mg Tablet 400 MG ORAL THREE TIMES A DAY for 10 Days, TAB Prov: Marty Mcgee M.D. 04/22/20 Referrals: [facility] *Patients are seen by appointment only* [facility] Patient Instructions: Oral Ulcers Marty Mcgee M.D. Apr 22, 2020 08:18
[2020-04-22 08:20] VITALS: BP 119/65
--- NOTE | 2020-04-22 08:20 | NUR ---
ED Nurse Note: Pt cleared by health care Provider for discharge. DC instructions/prescription were given and explained to pt and verbalized understanding of teachings. All medical deviecs such as ID band removed. Pt is AAO x4, ambulatory and left with all personal belongings.
[2020-04-24] MEDS ORDERED: ACYCLOVIR400 MG ORAL (21:31)
== END 2020-04-22 08:20 | disposition home or self-care (01) ==
LOC: EMR 08:19
DX: K12.1 Other forms of stomatitis (principal)
CPT/HCPCS: 99282